=== PATIENT | male | born 1975 | race Caucasian/White ===

== ENCOUNTER 2016-12-20 14:20 | Emergency (ER) | payer OTHER ==
[~2016-12-20] VITALS: Ht 180.3 cm; Wt 127.0 kg
[2016-12-20 15:01] VITALS: BP 132/81
[2016-12-20] MEDS: KETOROLAC TROMETH 60MG/2ML VIAL IM ONE (15:45)
== END 2016-12-20 16:29 | disposition home or self-care (01) ==
LOC: ER 14:20
DX: S93.402A Sprain of unspecified ligament of left ankle, initial encounter (principal); W18.39XA Other fall on same level, initial encounter; Y93.89 Activity, other specified; Y99.0 Civilian activity done for income or pay; Y92.89 Other specified places as the place of occurrence of the external cause
CPT/HCPCS: 29515; 73610; 96372; 99284; J1885